=== PATIENT | female | born 1960 | race African-American/Black ===

== ENCOUNTER 2022-01-19 11:06 | Emergency (ER) | payer SELFPAY ==
[~2022-01-19] VITALS: Ht 167.6 cm; Wt 61.0 kg
[2022-01-19 11:12] VITALS: BP 148/80
[2022-01-19] MEDS ORDERED: KETOROLAC 30MG/ML VIAL IM ONE (12:15)
[2022-01-19] MEDS ORDERED: CYCLOBENZAPRINE 10MG TABLET PO ONE (12:15)
[2022-01-19] MEDS ORDERED: IBUP-2029 MT (13:03)
[2022-01-19] MEDS ORDERED: LIDO1ADH23 TP (13:03)
[2022-01-19] MEDS ORDERED: CYCL5TAB MT (13:03)
== END 2022-01-19 13:55 | disposition home or self-care (01) ==
LOC: ER 11:06
DX: S39.012A Strain of muscle, fascia and tendon of lower back, initial encounter (principal); V49.49XA Driver injured in collision with other motor vehicles in traffic accident, initial encounter; Y93.89 Activity, other specified; Y92.89 Other specified places as the place of occurrence of the external cause; Y99.8 Other external cause status
CPT/HCPCS: 96372; 99283; J1885